=== PATIENT | male | born 1960 | race Caucasian/White ===

== ENCOUNTER 2024-11-02 09:47 | Emergency (ER) | payer OTHER ==
[~2024-11-02] VITALS: Ht 175.3 cm; Wt 128.6 kg
[~2024-11-02 09:47] MED LIST: Z.0.CARISOPRODOL350 PO; Z.0.NAPROXEN500 MG PO
[2024-11-02] MEDS ORDERED: WEGOVY1 MG/0.5 M (10:01)
[2024-11-02] MEDS ORDERED: PAXLOVID 300-11 EAC1 PO (10:24)
[2024-11-02] MEDS ORDERED: SUDAFED PE HEA PO (10:25)
[2024-11-02 10:36] VITALS: PULSE 99; RESP 20; TEMP 100.7; O2SAT 96
== END 2024-11-02 10:36 | disposition home or self-care (01) ==
LOC: FSED 09:52
DX: R05.9 Cough, unspecified (principal); U07.1 COVID-19; E11.9 Type 2 diabetes mellitus without complications; I25.10 Atherosclerotic heart disease of native coronary artery without angina pectoris; M54.9 Dorsalgia, unspecified; G89.29 Other chronic pain; E66.9 Obesity, unspecified; Z79.01 Long term (current) use of anticoagulants; Z95.1 Presence of aortocoronary bypass graft
CPT/HCPCS: 0223U; 87400; 99283